=== PATIENT | male | born 1990 | race Caucasian/White ===

== ENCOUNTER 2018-06-13 17:34 | Emergency (ER) | payer SELFPAY ==
[~2018-06-13] VITALS: Ht 175.3 cm; Wt 93.0 kg
[2018-06-13 17:40] VITALS: BP 142/94
--- NOTE | 2018-06-13 17:46 | NUR ---
Patient ambulated to bed 3. RN evaluating patient at bedside.
--- NOTE | 2018-06-13 17:50 | NUR ---
27M BIB SELF C/O POSSIBLE INSECT BITE ON RT ANTERIOR LOWER LEG. PT STATES HE WAS BITTEN ON MONDAY AND BEEN HAVING DIARRHEA, CHILLS, + SWELLING, + REDNESS, TENDER TO TOUCH, NO FEVER AT THIS TIME. + NAUSEA, -VOMITING. PT IS AOX4 TO PERSON, PLACE, SITUATION, AND TIME. RR ARE EVEN AND UNLABORED. ABD SOFT AND NON TENDER. PT CHANGED INTO GOWN. NAD. AWATING ER MD RIVERA. WILL CONTINUE TO MONITOR.
--- NOTE | 2018-06-13 18:26 | NUR ---
Dr. Campbell evaluating patient at bedside.
[2018-06-13 19:02] VITALS: BP 134/87
--- NOTE | 2018-06-13 19:02 | NUR ---
Patient discharged with v/s stable. Written and verbal after care instructions given and explained. Patient alert, oriented and verbalized understanding of instructions. Ambulatory with steady gait. All questions addressed prior to discharge. ID band removed. Patient advised to follow up with PMD. Rx of Cephalexin, Lomotil, and Zofran given. Patient educated on indication of medication including possible reaction and side effects. Opportunity to ask questions provided and answered.
== END 2018-06-13 19:02 | disposition home or self-care (01) ==
LOC: MED 17:34
DX: L03.115 Cellulitis of right lower limb (principal); R19.7 Diarrhea, unspecified; R11.0 Nausea
CPT/HCPCS: 90471; 90715; 99283